=== PATIENT | female | born 2005 | race Caucasian/White ===

== ENCOUNTER 2024-12-31 05:47 | Day surgery (SDC) | payer BC, SELFPAY ==
[2024-12-31 05:58] VITALS: BMI 30.7
[2024-12-31 06:09] VITALS: BMI 30.7
[2024-12-31 06:10] VITALS: BP 116/71
[2024-12-31] MEDS: MOBIC 15 MG PO (06:24)
[2024-12-31] MEDS: NORMOSOL-R/PLASMALYTE-A 1000 IV (06:24)
[2024-12-31] MEDS: TYLENOL 1000 MG PO (06:24)
[2024-12-31] MEDS: VANCOCIN 200 IV (06:24)
[2024-12-31 06:36] LABS: HCG, Urine Qualitative Screen Negative
[2024-12-31 08:05] VITALS: BP 104/40; BP 116/71
[2024-12-31 08:15] VITALS: BP 107/84
[2024-12-31] MEDS: ZOFRAN 4 MG IV (08:17)
[2024-12-31 08:30] VITALS: BP 96/56
[2024-12-31 08:50] VITALS: BP 97/63
[2024-12-31 09:05] VITALS: BP 109/80
== END 2024-12-31 09:25 | disposition home or self-care (01) ==
LOC: SDS 05:47
PROVIDERS: ATTENDING PHYSICIAN Orthopaedic Surgery Hand Surgery
DX: S63.641A Sprain of metacarpophalangeal joint of right thumb, initial encounter (principal); X58.XXXA Exposure to other specified factors, initial encounter
CPT/HCPCS: 26540; 81025; C1713